=== PATIENT | female | born 1940 | race Caucasian/White ===

== ENCOUNTER 2017-09-28 20:24 | Emergency (ER) | payer MEDICARE ==
[~2017-09-28] VITALS: Ht 162.6 cm; Wt 68.0 kg
[2017-09-28 20:35] VITALS: BP_SYST 119
--- NOTE | 2017-09-28 20:35 | NUR ---
Patient to ER bed 4 to gown for evaluation. Side rails up. Report given to MARK MEDLEY.
--- NOTE | 2017-09-28 20:45 | NUR ---
77year old female presented to ED with C/O RIGHT HIP AND POSTERIOR HEAD PAIN S/P TRIP AND FALL 30 MIN AGO; denies any loss of consciousness; awaiting for MD assess/eval
--- NOTE | 2017-09-28 22:22 | NUR ---
Dr. Shelton at bedside for assess/eval
[2017-09-28] MEDS ORDERED: HYDROcodone/ACETAMIN 7.5-325 MG TAB PO ONE (22:30)
--- NOTE | 2017-09-28 22:35 | NUR ---
6/10 head pain; admin Vicodin as ordered;will reassess and continue to monitor; VSS 100/61 P77 [id number]
--- NOTE | 2017-09-28 22:48 | NUR ---
Xray being performed at bedside; pt del
--- NOTE | 2017-09-28 23:52 | NUR ---
Patient calm on gurney, VS WNL, no signs of acute distress.
--- NOTE | 2017-09-29 00:51 | NUR ---
Called patient's son advising that patient is ready for discharge and in need of a ride home. Son stated "i'll be there in half an hour"
--- NOTE | 2017-09-29 01:04 | NUR ---
Patient C/O 08/22 headache. ER MD Shelton aware
[2017-09-29] MEDS ORDERED: ACETAMINOPHEN 325 MG TABLET PO ONE (01:15)
--- NOTE | 2017-09-29 01:26 | NUR ---
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
[2017-09-29 01:38] VITALS: BP_SYST 124
--- NOTE | 2017-09-29 01:38 | NUR ---
Patient given written and verbal discharge instructions and verbalizes understanding. ER MD Shelton discussed with patient the results and treatment provided. Patient in stable condition. ID arm band removed. Patient educated on pain management and to follow up with PMD. Pain Scale 0/10. Opportunity for questions provided and answered.
== END 2017-09-29 01:38 | disposition home or self-care (01) ==
LOC: SED 20:24
DX: S16.1XXA Strain of muscle, fascia and tendon at neck level, initial encounter (principal); S70.01XA Contusion of right hip, initial encounter; S09.90XA Unspecified injury of head, initial encounter; R03.0 Elevated blood-pressure reading, without diagnosis of hypertension; Z86.79 Personal history of other diseases of the circulatory system; Z90.89 Acquired absence of other organs; Z88.0 Allergy status to penicillin; Z88.1 Allergy status to other antibiotic agents; W01.10XA Fall on same level from slipping, tripping and stumbling with subsequent striking against unspecified object, initial encounter; Y93.89 Activity, other specified; Y92.89 Other specified places as the place of occurrence of the external cause; Y99.8 Other external cause status
CPT/HCPCS: 70450-TC; 72125-TC; 72170-TC; 99284

== ENCOUNTER 2017-09-29 23:53 | Emergency (ER) | payer MEDICARE ==
[~2017-09-29] VITALS: Ht 154.9 cm; Wt 99.8 kg
[2017-09-29 23:58] VITALS: BP_SYST 139
[2017-09-30] MEDS ORDERED: ACETAMINOPHEN 500 MG TABLET PO ONE (00:45)
[2017-09-30 01:24] LABS: BASOPHILS % (AUTO) 0.5 % (0.0-2.0); EOSINOPHILS # (AUTO) 0.1 K/uL (0.0-0.4); EOSINOPHILS % (AUTO) 1.7 % (0.0-4.0); HEMATOCRIT 37.5 % (36-48); HEMOGLOBIN 12.5 g/dL (12.0-16.0); LYMPHOCYTES # (AUTO) 1.4 K/uL (1.0-5.5); LYMPHOCYTES % (AUTO) 20.6 % (20.5-51.5); MEAN CORPUSCULAR HEMOGLOBIN 28 pg (27-31); MEAN CORPUSCULAR HGB CONC 33 % (32-36); MEAN CORPUSCULAR VOLUME 85 fL (79.0-98.0); MONOCYTES # (AUTO) 0.5 K/uL (0.0-1.0); NEUTROPHILS % (AUTO) 70.2 % (40.0-70.0); PLATELET COUNT (AUTO) 201 K/uL (130-430); RED CELL DISTRIBUTION WIDTH 16.1 % (9.0-15.0)
[2017-09-30 01:40] LABS: INR 1.1 (0.8-1.2); PROTHROMBIN TIME 10.8 SECS (9.5-12.5)
[2017-09-30 01:43] LABS: ANION GAP 8 (5-15); CALCIUM 8.7 mg/dL (8.4-11.0); CHLORIDE 105 mmol/L (98-107); CREATININE 1.16 mg/dL (0.55-1.30); GLUCOSE 84 mg/dL (70-99); SODIUM SERUM 142 mmol/L (136-145); UREA NITROGEN, BLOOD 18 mg/dL (8-21)
[2017-09-30 01:48] LABS: ALANINE AMINOTRANSFERASE 14 U/L (12-78); ALBUMIN 3.5 g/dL (3.4-4.8); ASPARTATE AMINOTRANSFERASE 15 U/L (10-37); TOTAL BILIRUBIN 0.3 mg/dL (0.0-1.0)
[2017-09-30] MEDS ORDERED: POTASSIUM CHLORIDE 20 MEQ/PKT PACKET PO ONE (02:30)
[2017-09-30 03:56] VITALS: BP_SYST 134
== END 2017-09-30 03:56 ==
LOC: SED 23:53
DX: S00.83XA Contusion of other part of head, initial encounter (principal); E87.6 Hypokalemia; R03.0 Elevated blood-pressure reading, without diagnosis of hypertension; Z86.79 Personal history of other diseases of the circulatory system; Z90.89 Acquired absence of other organs; Z88.0 Allergy status to penicillin; Z88.1 Allergy status to other antibiotic agents; W19.XXXA Unspecified fall, initial encounter; Y93.89 Activity, other specified; Y92.89 Other specified places as the place of occurrence of the external cause; Y99.8 Other external cause status
CPT/HCPCS: 36415; 70450-TC; 72125-TC; 80053; 82550-TC; 83735-TC; 84484; 85025; 85610-TC; 85730-TC; 93005; 99285

== ENCOUNTER 2018-03-06 16:44 | Emergency (ER) | payer MEDICARE ==
[~2018-03-06] VITALS: Ht 154.9 cm; Wt 59.0 kg
[2018-03-06 16:45] VITALS: BP_SYST 114
[2018-03-06 17:26] LABS: BASOPHILS # (AUTO) 0.1 K/uL (0.0-0.2); BASOPHILS % (AUTO) 0.7 % (0.0-2.0); EOSINOPHILS # (AUTO) 0.1 K/uL (0.0-0.4); EOSINOPHILS % (AUTO) 0.9 % (0.0-4.0); HEMATOCRIT 31.8 % (36-48); HEMOGLOBIN 10.9 g/dL (12.0-16.0); LYMPHOCYTES # (AUTO) 2.4 K/uL (1.0-5.5); LYMPHOCYTES % (AUTO) 28.4 % (20.5-51.5); MEAN CORPUSCULAR HEMOGLOBIN 31 pg (27-31); MEAN CORPUSCULAR HGB CONC 34 % (32-36); MEAN CORPUSCULAR VOLUME 91 fL (79.0-98.0); MONOCYTES # (AUTO) 0.5 K/uL (0.0-1.0); MONOCYTES % (AUTO) 5.6 % (1.7-9.3); NEUTROPHILS # (AUTO) 5.3 K/uL (1.8-7.7); NEUTROPHILS % (AUTO) 64.4 % (40.0-70.0); PLATELET COUNT (AUTO) 155 K/uL (130-430); RED BLOOD CELL COUNT(AUTO) 3.48 MIL/uL (4.2-6.2); RED CELL DISTRIBUTION WIDTH 13.4 % (9.0-15.0); WHITE BLOOD COUNT (AUTO) 8.4 K/uL (4.8-10.8)
[2018-03-06 17:30] LABS: ANION GAP 7 (5-15); CALCIUM 8.9 mg/dL (8.4-11.0); CHLORIDE 91 mmol/L (98-107); CREATININE 1.39 mg/dL (0.55-1.30); GLUCOSE 101 mg/dL (70-99); SODIUM SERUM 133 mmol/L (136-145); UREA NITROGEN, BLOOD 29 mg/dL (8-21)
[2018-03-06 17:36] LABS: ALANINE AMINOTRANSFERASE 14 U/L (12-78); ALBUMIN 3.1 g/dL (3.4-4.8); ASPARTATE AMINOTRANSFERASE 21 U/L (10-37); TOTAL BILIRUBIN 0.3 mg/dL (0.0-1.0)
[2018-03-06] MEDS ORDERED: KCL 20 mEq in 100 mL (PREMIX) 100 ML IV ONE (18:45)
[2018-03-06] MEDS ORDERED: POTASSIUM CHLORIDE 20 MEQ TAB.PRT.SR PO ONE (20:30)
[2018-03-06 21:59] VITALS: BP_SYST 105
== END 2018-03-06 21:59 | disposition home or self-care (01) ==
LOC: SED 16:44
DX: E87.6 Hypokalemia (principal); R03.0 Elevated blood-pressure reading, without diagnosis of hypertension; Z86.79 Personal history of other diseases of the circulatory system; Z88.0 Allergy status to penicillin; Z88.1 Allergy status to other antibiotic agents
CPT/HCPCS: 36415; 80053; 85025; 93005; 96365; 96366; 99284; J3480; 99283

== ENCOUNTER 2018-03-23 22:07 | Emergency (ER) | payer MEDICARE ==
[~2018-03-23] VITALS: Ht 154.9 cm; Wt 59.0 kg
[2018-03-23 22:14] VITALS: BP_SYST 74
[2018-03-23] MEDS ORDERED: ONDANSETRON HCL 4 MG/2 ML VIAL ONE (22:37)
[2018-03-23] MEDS ORDERED: LEVO125T8 PO (22:43)
[2018-03-23] MEDS ORDERED: ALEN70TA3 PO (22:44)
[2018-03-23] MEDS ORDERED: LIP20 PO (22:45)
[2018-03-23] MEDS ORDERED: NS 1000 ML IV.SOLN IV ONE (22:45)
[2018-03-23] MEDS ORDERED: ONDANSETRON HCL 4 MG/2 ML VIAL IVP ONE (22:45)
[2018-03-23] MEDS ORDERED: FURO-149 PO (22:45)
[2018-03-23] MEDS ORDERED: ASPI-1153 PO (22:46)
[2018-03-23] MEDS ORDERED: POTA-80 PO (22:46)
[2018-03-23] MEDS ORDERED: SERT-131 PO (22:47)
[2018-03-23] MEDS ORDERED: PRO40 PO (22:48)
[2018-03-23] MEDS ORDERED: BUPR100T13 PO (22:49)
[2018-03-23] MEDS ORDERED: FERR-69 PO (22:50)
[2018-03-23] MEDS ORDERED: ESTR0.5T PO (22:50)
[2018-03-23] MEDS ORDERED: BISA5TAB10 PO (22:51)
[2018-03-23] MEDS ORDERED: HYDR-3925 PO (22:52)
[2018-03-23] MEDS ORDERED: IPRA3AMP9 INH (22:57)
[2018-03-23] MEDS ORDERED: HYOS-27 SL (22:58)
[2018-03-23] MEDS ORDERED: PROC25SU2 RC (23:01)
[2018-03-23] MEDS ORDERED: MOM PO (23:02)
[2018-03-23] MEDS ORDERED: ACET650S27 RC (23:02)
[2018-03-23] MEDS ORDERED: FLUT16SP16 NS (23:03)
[2018-03-23 23:16] LABS: BASOPHILS # (AUTO) 0.1 K/uL (0.0-0.2); BASOPHILS % (AUTO) 0.6 % (0.0-2.0); EOSINOPHILS # (AUTO) 0.2 K/uL (0.0-0.4); EOSINOPHILS % (AUTO) 2.2 % (0.0-4.0); HEMATOCRIT 32.1 % (36-48); HEMOGLOBIN 10.3 g/dL (12.0-16.0); LYMPHOCYTES # (AUTO) 3.7 K/uL (1.0-5.5); LYMPHOCYTES % (AUTO) 35.7 % (20.5-51.5); MEAN CORPUSCULAR HEMOGLOBIN 31 pg (27-31); MEAN CORPUSCULAR HGB CONC 32 % (32-36); MEAN CORPUSCULAR VOLUME 95 fL (79.0-98.0); MONOCYTES # (AUTO) 0.7 K/uL (0.0-1.0); MONOCYTES % (AUTO) 6.6 % (1.7-9.3); NEUTROPHILS # (AUTO) 5.5 K/uL (1.8-7.7); NEUTROPHILS % (AUTO) 54.9 % (40.0-70.0); PLATELET COUNT (AUTO) 349 K/uL (130-430); RED BLOOD CELL COUNT(AUTO) 3.36 MIL/uL (4.2-6.2); RED CELL DISTRIBUTION WIDTH 15.7 % (9.0-15.0); WHITE BLOOD COUNT (AUTO) 10.2 K/uL (4.8-10.8)
[2018-03-23 23:32] LABS: ANION GAP 12 (5-15); CALCIUM 8.2 mg/dL (8.4-11.0); CHLORIDE 100 mmol/L (98-107); GLUCOSE 128 mg/dL (70-99); POTASSIUM 3.1 mmol/L (3.5-5.1); SODIUM SERUM 139 mmol/L (136-145); UREA NITROGEN, BLOOD 17 mg/dL (8-21)
[2018-03-23 23:35] LABS: INR 1.1 (0.8-1.2); PROTHROMBIN TIME 10.9 SECS (9.5-12.5)
[2018-03-23 23:38] LABS: ALANINE AMINOTRANSFERASE 13 U/L (12-78); ASPARTATE AMINOTRANSFERASE 13 U/L (10-37); TOTAL BILIRUBIN 0.3 mg/dL (0.0-1.0)
[2018-03-24] MEDS ORDERED: POTASSIUM CHLORIDE 20 MEQ TAB.PRT.SR PO ONE
[2018-03-24] MEDS ORDERED: MORPHINE 4 MG/ML INJ. SYRINGE IVP ONE
[2018-03-24 00:21] LABS: BILIRUBIN,URINE NEGATIVE (NEGATIVE); CLARITY/URINE CLEAR (CLEAR); COLOR,URINE YELLOW (YELLOW); GLUCOSE,URINE NEGATIVE (NEGATIVE); KETONES,URINE NEGATIVE (NEGATIVE); LEUKOCYTE ESTERASE ,URINE 3+ (NEGATIVE); NITRITE, URINE POSITIVE (NEGATIVE); PH,URINE 6.5 (5.0-8.0); PROTEIN URINE NEGATIVE (NEGATIVE); UROBILINOGEN,URINE 0.2 (0.2-1.0)
[2018-03-24 00:22] LABS: BLOOD, URINE TRACE (NEGATIVE)
[2018-03-24 00:33] LABS: BACTERIA,URINE MANY /HPF (None Seen); WBC,URINE 20-50 /HPF (0-3)
[2018-03-24] MEDS ORDERED: LEVOFLOXACIN 500 MG/D5W 100 ML IV ONE (00:45)
[2018-03-24 03:48] VITALS: BP_SYST 124
== END 2018-03-24 03:50 | disposition short-term general hospital (02) ==
LOC: SED 22:07
DX: S01.01XA Laceration without foreign body of scalp, initial encounter (principal); E87.6 Hypokalemia; N39.0 Urinary tract infection, site not specified; D64.9 Anemia, unspecified; I95.9 Hypotension, unspecified; Z86.79 Personal history of other diseases of the circulatory system; Z88.0 Allergy status to penicillin; Z88.1 Allergy status to other antibiotic agents; Z79.82 Long term (current) use of aspirin; Z79.899 Other long term (current) drug therapy; W01.198A Fall on same level from slipping, tripping and stumbling with subsequent striking against other object, initial encounter; Y93.89 Activity, other specified; Y92.89 Other specified places as the place of occurrence of the external cause; Y99.8 Other external cause status
CPT/HCPCS: 12002; 36415; 70450; 71045; 80053; 81000; 83605; 84484; 85025; 85610; 85730; 87040; 87086; 87186; 93005; 96365; 96375; 99284; J1956; J2270; J2405